=== PATIENT | male | born 1980 | race Caucasian/White ===

== ENCOUNTER 2018-05-29 02:25 | Emergency (ER) | payer SELFPAY ==
[~2018-05-29] VITALS: Ht 167.6 cm; Wt 122.5 kg
[~2018-05-29 02:25] MED LIST: CEPH250C16 PO; TYL3 PO
[2018-05-29 02:32] VITALS: BP 180/89
--- NOTE | 2018-05-29 02:32 | NUR ---
PT TAKEN TO BED 12.
--- NOTE | 2018-05-29 02:40 | NUR ---
37/M c/o right flank pain since 2129 yesterday 05/28/09. Pt describes sharp intermittent 10/10 pain in right flank without radiation. Pt denies n/v/d. Denies any fever or chills at home. Patient did not take any medications at home prior to arrival. Awake and alert x4, clear speech.
--- NOTE | 2018-05-29 03:04 | NUR ---
Dr. King evaluating patient at bedside.
[2018-05-29] MEDS ORDERED: NACL 0.9% 1,000 ML IV SCH (03:05)
[2018-05-29] MEDS ORDERED: KETOROLAC 30 MG/ML VIAL IVP ONE (03:05)
--- NOTE | 2018-05-29 03:08 | NUR ---
IV started to left ac 20 gauge. Blood drawn. IV flushed with 10 cc on NS. No swelling or erythema noted. Pt tolerated well
--- NOTE | 2018-05-29 03:13 | NUR ---
Lorri banegas in [facility] - 05/29/18 at 0322 by ALOK PT TAKEN TO CT
--- NOTE | 2018-05-29 03:13 | NUR ---
Patient taken to CT via w/c.
--- NOTE | 2018-05-29 03:22 | NUR ---
Lorri banegas in [facility] - 05/29/18 at 0322 by ALOK PT RETURN FROM CT
--- NOTE | 2018-05-29 03:22 | NUR ---
Pt returned from CT and placed back into bed 12.
--- NOTE | 2018-05-29 03:43 | NUR ---
Pt expresses some relief from pain after receiving Toradol. Pt now c/o 07/[address] King made aware.
[2018-05-29] MEDS ORDERED: MORPHINE SULFATE 4 MG/ML SYR IVP ONE (03:45)
[2018-05-29 03:46] LABS: APPEARANCE,URINE CLEAR (CLEAR); BILIRUBIN,URINE NEGATIVE (NEGATIVE); BLOOD, URINE 1+ (NEGATIVE); COLOR,URINE YELLOW (YELLOW); LEUKOCYTE ESTERASE ,URINE NEGATIVE (NEGATIVE); NITRITE, URINE NEGATIVE (NEGATIVE); PH,URINE 5.5 (5.0-9.0); UGLUCOSE NEGATIVE (NEGATIVE)
[2018-05-29 04:05] LABS: BASOPHILS % (AUTO) 0.5 % (0.0-2.0); EOSINOPHILS # (AUTO) 0.2 K/uL (0-0.4); EOSINOPHILS % (AUTO) 1.8 % (0.0-4.0); HEMATOCRIT 48.1 % (36-52); HEMOGLOBIN 16.5 g/dL (12.0-18.0); LYMPHOCYTES # (AUTO) 1.9 K/uL (2.0-11.5); MEAN CORPUSCULAR HEMOGLOBIN 31 pg (27-31); MEAN CORPUSCULAR HGB CONC 34 g/dL (33-37); MEAN CORPUSCULAR VOLUME 90.6 fL (80-94); MONOCYTES # (AUTO) 0.6 K/uL (0.8-1.0); MONOCYTES % (AUTO) 6.1 % (1.7-9.3); NEUTROPHILS # (AUTO) 7.1 K/uL (1.8-7.7); NEUTROPHILS % (AUTO) 72.6 % (42.2-75.2); PLATELET COUNT (AUTO) 207 K/uL (140-450); RED BLOOD CELL COUNT(AUTO) 5.31 MIL/uL (4.20-6.10); RED CELL DISTRIBUTION WIDTH 12.9 % (11.6-13.7); WHITE BLOOD COUNT (AUTO) 9.8 K/uL (4.8-10.8)
[2018-05-29 04:09] LABS: WBC,URINE 0-5 /HPF (0-5)
[2018-05-29 04:17] LABS: ALBUMIN 4.1 g/dL (3.4-5.0); ANION GAP 12.5 (8-16); CARBON DIOXIDE 26.3 mmol/L (21-32); CREATININE 0.9 mg/dL (0.7-1.3); POTASSIUM 3.8 mmol/L (3.5-5.1); TOTAL BILIRUBIN 0.6 mg/dL (0.0-1.0)
--- NOTE | 2018-05-29 04:28 | NUR ---
IV removed, catheter intact and site benign. Applied folded 4x4 gauze and secured with co-flex to stop bleeding.
[2018-05-29 04:30] VITALS: BP 102/50
--- NOTE | 2018-05-29 04:30 | NUR ---
Patient discharged with v/s stable. Written and verbal after care instructions given and explained. Patient alert, oriented and verbalized understanding of instructions. Patient accompanied by mother. Mother to drive patient home. Ambulatory with steady gait. All questions addressed prior to discharge. ID band removed. Patient advised to follow up with PMD. Rx of Azithromycin 250mg, Motrin 800mg and [place] 5mg-325mg given. Patient educated about importance of completing antibiotic therapy. Patient educated on indication of medication including possible reaction and side effects. Opportunity to ask questions provided and answered.
== END 2018-05-29 04:30 | disposition home or self-care (01) ==
LOC: MED 02:25
DX: J18.9 Pneumonia, unspecified organism (principal); R10.9 Unspecified abdominal pain; F17.210 Nicotine dependence, cigarettes, uncomplicated; Z79.1 Long term (current) use of non-steroidal anti-inflammatories (NSAID); Z79.2 Long term (current) use of antibiotics
CPT/HCPCS: 36415; 74176; 80053; 81001; 83690; 85025; 87086; 96374; 96375; 99284; J1885; J2270; J7030

== ENCOUNTER 2020-10-04 21:09 | Emergency (ER) | payer SELFPAY ==
[~2020-10-04] VITALS: Ht 172.7 cm; Wt 128.8 kg
[~2020-10-04 21:09] MED LIST changes: +ACET-503 PO; -TYL3 PO
[2020-10-04 21:20] VITALS: BP 136/86
--- NOTE | 2020-10-04 21:20 | NUR ---
TO BED AMBULATORY
--- NOTE | 2020-10-04 22:00 | NUR ---
39 YO/M BIB SELF W C/O L LOWER BACK PAIN 10/10 INTERMITTENT RADIATING TO L LOWER LEG/CALF. PER PATIENT PAIN IMPROVES W WARM COMPRESS, AND WORSENS WHEN IN CERTAIN POSITIONS. DENIES ANY INJURIES/TRAUMA. PATIENT STANDING AT BEDSIDE LEANING OVER W HANDS ON BED. BED LOCKED IN LOWEST POSITION, X1 SIDERAIL UP. PMH:DENIES NKA
[2020-10-04] MEDS ORDERED: MORPHINE SULFATE 4 MG/ML SYR IM ONE (22:05)
[2020-10-04] MEDS ORDERED: KETOROLAC 60 MG/2 ML VIAL IM ONE (22:05)
--- NOTE | 2020-10-04 22:44 | NUR ---
PATIENT REPORTS PAIN 1/. PATIENT LAYING IN BED LOCKED IN LOWEST POSTION, X1 SIDERAIL UP. PATIENT WATCHING VIDEOS ON PHONE. CONNECTED TO MONITOR W VSS.
[2020-10-04] MEDS ORDERED: NAPR-54 PO (23:42)
[2020-10-04 23:46] VITALS: BP 136/86
--- NOTE | 2020-10-04 23:46 | NUR ---
Patient discharged with v/s stable BY . Written and verbal after care instructions given and explained BY . Patient alert, oriented and verbalized understanding of instructions. Ambulatory with steady gait. All questions addressed prior to discharge BY . ID band removed. Patient advised to follow up with PMD. Rx of NAPROXEN given. Patient educated on indication of medication including possible reaction and side effects BY . Opportunity to ask questions provided and answered BY .
== END 2020-10-04 23:46 | disposition home or self-care (01) ==
LOC: MED 21:09
DX: M54.31 Sciatica, right side (principal); F12.10 Cannabis abuse, uncomplicated; F17.210 Nicotine dependence, cigarettes, uncomplicated
CPT/HCPCS: 96372; 99284; J1885; J2270

== ENCOUNTER 2022-02-13 19:04 | Emergency (ER) | payer SELFPAY ==
[~2022-02-13] VITALS: Ht 167.6 cm; Wt 127.0 kg
[~2022-02-13 19:04] MED LIST changes: +NAPR-54 PO
[2022-02-13 19:07] VITALS: BP 149/95
--- NOTE | 2022-02-13 19:09 | NUR ---
SAIGED CALLED TO TRIAGE FOR NIHSS
[2022-02-13] MEDS ORDERED: PRED20TA5 PO (19:14)
[2022-02-13] MEDS ORDERED: VALA1TAB2 PO (19:14)
[2022-02-13] MEDS ORDERED: CARB1DRO2 OP (19:14)
[2022-02-13] MEDS ORDERED: predniSONE 20 MG TAB PO ONE (19:15)
[2022-02-13 19:53] VITALS: BP 149/95
--- NOTE | 2022-02-13 19:53 | NUR ---
Patient discharged with v/s stable. Written and verbal after care instructions given and explained. Patient alert, oriented and verbalized understanding of instructions. Ambulatory with steady gait. All questions addressed prior to discharge. ID band removed. Patient advised to follow up with PMD. Rx of CARBOXYMETHYLCELLULOSE, DELTASONE, VALTREX given. Patient educated on indication of medication including possible reaction and side effects. Opportunity to ask questions provided and answered.
== END 2022-02-13 19:53 | disposition home or self-care (01) ==
LOC: MED 19:04
DX: G51.0 Bell's palsy (principal)
CPT/HCPCS: 99283; J7512